=== PATIENT | male | born 1945 | race Caucasian/White ===

== ENCOUNTER 2018-09-27 17:06 | Inpatient (IN) | payer MEDICARE, OTHER ==
[2018-09-27 17:54] LABS: ADD MAN DIFF? NO
[2018-09-27 18:00] LABS: BASOPHILS % 0.5 % (0.0-2.0); EOSINOPHILS # 0.1 10^3/ul (0.0-0.5); EOSINOPHILS % 1.2 % (0.0-7.0); HEMATOCRIT 42.6 % (42.0-52.0); HEMOGLOBIN 14.1 g/dl (14.0-18.0); LYMPHOCYTES # 1.5 10^3/ul (0.8-2.9); LYMPHOCYTES % 17.4 % (15.0-51.0); MEAN CORPUSCULAR HEMOGLOBIN 28.7 pg (29.0-33.0); MEAN CORPUSCULAR HGB CONC 33.1 g/dl (32.0-37.0); MEAN CORPUSCULAR VOLUME 86.8 fl (82.0-101.0); MEAN PLATELET VOLUME 9.6 fl (7.4-10.4); MONOCYTE # 0.8 10^3/ul (0.3-0.9); NEUTROPHILS % 71.5 % (39.0-77.0); PLATELET COUNT 217 10^3/UL (140-415); RED BLOOD COUNT 4.91 10^6/ul (4.70-6.10)
[2018-09-27 18:00] LABS: WHITE BLOOD COUNT 8.4 10^3/ul (4.8-10.8)
[2018-09-27] MEDS: ACETAMINOPHEN 325 MG TAB PO (18:05)
[2018-09-27] MEDS: CEFEPIME 2GM/50 ML (PMX) 50 ML IVPB (18:05)
[2018-09-27] MEDS: SODIUM CHLORIDE 0.9% 1L BAG IV* (18:05)
[2018-09-27] MEDS: ALBUTEROL 0.5% (NEB) 2.5 MG/0.5 ML AMP INH (18:11)
[2018-09-27 18:20] LABS: INR 0.92; PROTIME 12.5 Sec (11.9-14.9)
[2018-09-27 18:21] LABS: PARTIAL THROMBOPLASTIN TIME 28.3 Sec (23.0-35.0)
[2018-09-27 18:22] LABS: ALANINE AMINOTRANSFERASE 37 IU/L (13-69); ALBUMIN 3.5 g/dl (3.3-4.9); ALBUMIN/GLOBULIN RATIO 1.02; ALKALINE PHOSPHATASE 63 IU/L (42-121); ANION GAP 6 (5-13); ASPARTATE AMINO TRANSFERASE 46 IU/L (15-46); BILIRUBIN,INDIRECT 0.4 mg/dl (0-1.1); BILIRUBIN,TOTAL 0.4 mg/dl (0.2-1.3); BLOOD UREA NITROGEN 15 mg/dl (7-20); CALCIUM 9.4 mg/dl (8.4-10.2); CARBON DIOXIDE 28 mmol/L (21-31); CHLORIDE 106 mmol/L (97-110); CREATININE 1.06 mg/dl (0.61-1.24); GLUCOSE 121 mg/dl (70-220); SODIUM 140 mmol/L (135-144); TOTAL PROTEIN 6.9 g/dl (6.1-8.1)
[2018-09-27 18:34] LABS: TROPONIN-I 0.066 ng/ml (0.000-0.120)
[2018-09-27] MEDS: VANCOMYCIN 1 GM (PMX) 250 ML IVPB (18:44)
[2018-09-27 19:17] LABS: B-TYPE NATRIURETIC PEPTIDE 1120 PG/ML (0-125)
[2018-09-27] MEDS ORDERED: ALBUTEROL/IPRATROPIUM (NEB) 3 ML AMP HHN (20:00)
[2018-09-27] MEDS ORDERED: ACETAMINOPHEN 325 MG TAB PO ×2 (20:00→22:30)
[2018-09-27] MEDS: METHYLPREDNISOLONE 125 MG INJ IV (20:44)
[2018-09-27] MEDS: ONDANSETRON 4 MG INJ IV (20:44)
[2018-09-27] MEDS: LOSARTAN 50 MG TAB PO (21:41)
[2018-09-27] MEDS: ATORVASTATIN 20 MG TAB PO (21:41)
[2018-09-27] MEDS: MONTELUKAST 10 MG TAB PO (21:41)
[2018-09-27] MEDS: ROPINIROLE 0.25 MG TAB PO (21:41)
[2018-09-27] MEDS: HEPARIN 5,000 UNIT/1 ML VIAL SC (21:49)
[2018-09-27] MEDS ORDERED: ONDANSETRON 4 MG INJ IV (22:30)
[2018-09-28] MEDS ORDERED: ONDANSETRON 4 MG INJ IV (02:00)
[2018-09-28 06:26] LABS: ADD MAN DIFF? NO
[2018-09-28 06:40] LABS: BASOPHILS % 0.2 % (0.0-2.0); HEMATOCRIT 39.8 % (42.0-52.0); HEMOGLOBIN 13.1 g/dl (14.0-18.0); LYMPHOCYTES # 0.7 10^3/ul (0.8-2.9); MEAN CORPUSCULAR HGB CONC 32.9 g/dl (32.0-37.0); MEAN CORPUSCULAR VOLUME 88.1 fl (82.0-101.0); MEAN PLATELET VOLUME 10.2 fl (7.4-10.4); MONOCYTE # 0.1 10^3/ul (0.3-0.9); MONOCYTES % 1.2 % (0.0-11.0); NEUTROPHIL # 4.9 10^3/ul (1.6-7.5); NEUTROPHILS % 85.2 % (39.0-77.0); PLATELET COUNT 209 10^3/UL (140-415); RED BLOOD COUNT 4.52 10^6/ul (4.70-6.10); RED CELL DISTRIBUTION WIDTH 13.3 % (11.5-14.5)
[2018-09-28 06:40] LABS: WHITE BLOOD COUNT 5.7 10^3/ul (4.8-10.8)
[2018-09-28 06:58] LABS: ALANINE AMINOTRANSFERASE 34 IU/L (13-69); ALBUMIN 3.1 g/dl (3.3-4.9); ALKALINE PHOSPHATASE 46 IU/L (42-121); ANION GAP 7 (5-13); ASPARTATE AMINO TRANSFERASE 36 IU/L (15-46); BILIRUBIN,INDIRECT 0.3 mg/dl (0-1.1); BILIRUBIN,TOTAL 0.3 mg/dl (0.2-1.3); BLOOD UREA NITROGEN 19 mg/dl (7-20); CALCIUM 8.6 mg/dl (8.4-10.2); CARBON DIOXIDE 28 mmol/L (21-31); CHLORIDE 107 mmol/L (97-110); CHOL/HDL RATIO 8.3 RATIO; CHOLESTEROL 208 mg/dl (100-200); CREATININE 1.12 mg/dl (0.61-1.24); GLUCOSE 208 mg/dl (70-220); HDL CHOLESTEROL 25 mg/dl (31-75); LDL CHOLESTEROL,CALCULATED 118 mg/dl; MAGNESIUM 1.6 mg/dl (1.7-2.5); POTASSIUM 4.4 mmol/L (3.5-5.1); SODIUM 142 mmol/L (135-144); TOTAL PROTEIN 5.9 g/dl (6.1-8.1); TRIGLYCERIDES 324 mg/dl (0-149)
[2018-09-28] MEDS: CEFTRIAXONE 1 GM/50 ML (PMX) 50 ML IVPB ×2 (08:34→21:35)
[2018-09-28] MEDS: AZITHROMYCIN 500MG/NS (PMX) 250 ML IVPB (08:34)
[2018-09-28] MEDS: ASPIRIN (EC) 81 MG TAB PO (08:35)
[2018-09-28] MEDS: PANTOPRAZOLE (EC) 40 MG TAB PO (08:35)
[2018-09-28] MEDS: CLOPIDOGREL 75 MG TAB PO (08:35)
[2018-09-28] MEDS: predniSONE 20 MG TAB PO (08:35)
[2018-09-28] MEDS: HEPARIN 5,000 UNIT/1 ML VIAL SC ×2 (08:43→22:16)
[2018-09-28] MEDS: LOSARTAN 50 MG TAB PO (08:58)
[2018-09-28] MEDS ORDERED: CEPASTAT LOZENGE MT (12:00)
[2018-09-28 12:54] LABS: HEMOGLOBIN A1C 5.9 % (0-5.9)
[2018-09-28] MEDS: METHYLPREDNISOLONE 125 MG INJ IV ×3 (13:42→21:33)
[2018-09-28] MEDS: MAGNESIUM SULFATE 1 GM/D5W 100 ML IVPB (13:42)
[2018-09-28] MEDS: ALBUTEROL/IPRATROPIUM (NEB) 3 ML AMP HHN ×3 (13:55→21:09)
[2018-09-28] MEDS: MONTELUKAST 10 MG TAB PO ×2 (21:00→21:34)
[2018-09-28] MEDS: ROPINIROLE 0.25 MG TAB PO (21:34)
[2018-09-28] MEDS: ATORVASTATIN 20 MG TAB PO (21:34)
[2018-09-28] MEDS: APIXABAN 5 MG TABLET PO (21:35)
[2018-09-29] MEDS: ALBUTEROL/IPRATROPIUM (NEB) 3 ML AMP HHN ×6 (01:04→20:39)
[2018-09-29] MEDS: METHYLPREDNISOLONE 125 MG INJ IV ×3 (06:28→21:09)
[2018-09-29 06:36] LABS: WHITE BLOOD COUNT 15.3 10^3/ul (4.8-10.8)
[2018-09-29 06:36] LABS: ADD MAN DIFF? NO; BASOPHILS % 0.1 % (0.0-2.0); HEMATOCRIT 38.2 % (42.0-52.0); HEMOGLOBIN 12.5 g/dl (14.0-18.0); LYMPHOCYTES # 0.8 10^3/ul (0.8-2.9); LYMPHOCYTES % 5.2 % (15.0-51.0); MEAN CORPUSCULAR HEMOGLOBIN 28.9 pg (29.0-33.0); MEAN CORPUSCULAR HGB CONC 32.7 g/dl (32.0-37.0); MEAN CORPUSCULAR VOLUME 88.2 fl (82.0-101.0); MEAN PLATELET VOLUME 10.2 fl (7.4-10.4); MONOCYTE # 0.4 10^3/ul (0.3-0.9); MONOCYTES % 2.9 % (0.0-11.0); NEUTROPHIL # 13.9 10^3/ul (1.6-7.5); NEUTROPHILS % 90.9 % (39.0-77.0); PLATELET COUNT 235 10^3/UL (140-415); RED BLOOD COUNT 4.33 10^6/ul (4.70-6.10); RED CELL DISTRIBUTION WIDTH 13.2 % (11.5-14.5)
[2018-09-29 07:06] LABS: ALANINE AMINOTRANSFERASE 27 IU/L (13-69); ALBUMIN 3.3 g/dl (3.3-4.9); ALBUMIN/GLOBULIN RATIO 1.22; ALKALINE PHOSPHATASE 50 IU/L (42-121); ANION GAP 9 (5-13); ASPARTATE AMINO TRANSFERASE 27 IU/L (15-46); BILIRUBIN,INDIRECT 0.1 mg/dl (0-1.1); BILIRUBIN,TOTAL 0.1 mg/dl (0.2-1.3); BLOOD UREA NITROGEN 25 mg/dl (7-20); CALCIUM 8.5 mg/dl (8.4-10.2); CARBON DIOXIDE 25 mmol/L (21-31); CHLORIDE 107 mmol/L (97-110); CHOL/HDL RATIO 8.3 RATIO; CHOLESTEROL 200 mg/dl (100-200); CREATININE 1.35 mg/dl (0.61-1.24); GLUCOSE 278 mg/dl (70-220); HDL CHOLESTEROL 24 mg/dl (31-75); LDL CHOLESTEROL,CALCULATED 96 mg/dl; POTASSIUM 4.2 mmol/L (3.5-5.1); SODIUM 141 mmol/L (135-144); TRIGLYCERIDES 402 mg/dl (0-149)
[2018-09-29 07:14] LABS: B-TYPE NATRIURETIC PEPTIDE 259 PG/ML (0-125)
[2018-09-29 07:39] LABS: MAGNESIUM 1.9 mg/dl (1.7-2.5)
[2018-09-29 07:39] LABS: PHOSPHORUS 2.7 mg/dl (2.5-4.9)
[2018-09-29] MEDS: CLOPIDOGREL 75 MG TAB PO (09:49)
[2018-09-29] MEDS: APIXABAN 5 MG TABLET PO ×2 (09:50→20:58)
[2018-09-29] MEDS: LOSARTAN 50 MG TAB PO (09:50)
[2018-09-29] MEDS: PANTOPRAZOLE (EC) 40 MG TAB PO (09:50)
[2018-09-29] MEDS: predniSONE 20 MG TAB PO (09:50)
[2018-09-29] MEDS: CEFTRIAXONE 1 GM/50 ML (PMX) 50 ML IVPB ×2 (09:52→20:59)
[2018-09-29] MEDS: HEPARIN 5,000 UNIT/1 ML VIAL SC (10:17)
[2018-09-29] MEDS: AZITHROMYCIN 500MG/NS (PMX) 250 ML IVPB (10:46)
[2018-09-29] MEDS: MONTELUKAST 10 MG TAB PO ×2 (20:58→21:00)
[2018-09-29] MEDS: ROPINIROLE 0.25 MG TAB PO (20:58)
[2018-09-29] MEDS: ATORVASTATIN 20 MG TAB PO (20:58)
[2018-09-30] MEDS: ALBUTEROL/IPRATROPIUM (NEB) 3 ML AMP HHN ×6 (00:43→19:35)
[2018-09-30] MEDS: METHYLPREDNISOLONE 125 MG INJ IV (05:56)
[2018-09-30 06:15] LABS: ADD MAN DIFF? NO
[2018-09-30 06:19] LABS: BASOPHILS % 0.2 % (0.0-2.0); HEMATOCRIT 38.6 % (42.0-52.0); HEMOGLOBIN 12.2 g/dl (14.0-18.0); LYMPHOCYTES # 1.2 10^3/ul (0.8-2.9); LYMPHOCYTES % 5.9 % (15.0-51.0); MEAN CORPUSCULAR HEMOGLOBIN 28.6 pg (29.0-33.0); MEAN CORPUSCULAR HGB CONC 31.6 g/dl (32.0-37.0); MEAN CORPUSCULAR VOLUME 90.4 fl (82.0-101.0); MEAN PLATELET VOLUME 10.1 fl (7.4-10.4); MONOCYTE # 0.5 10^3/ul (0.3-0.9); MONOCYTES % 2.6 % (0.0-11.0); NEUTROPHIL # 18.5 10^3/ul (1.6-7.5); NEUTROPHILS % 89.5 % (39.0-77.0); PLATELET COUNT 267 10^3/UL (140-415); RED BLOOD COUNT 4.27 10^6/ul (4.70-6.10); RED CELL DISTRIBUTION WIDTH 13.2 % (11.5-14.5)
[2018-09-30 06:19] LABS: WHITE BLOOD COUNT 20.7 10^3/ul (4.8-10.8)
[2018-09-30 06:37] LABS: ANION GAP 9 (5-13); BLOOD UREA NITROGEN 28 mg/dl (7-20); CALCIUM 8.3 mg/dl (8.4-10.2); CARBON DIOXIDE 23 mmol/L (21-31); CHLORIDE 110 mmol/L (97-110); CREATININE 1.27 mg/dl (0.61-1.24); GLUCOSE 214 mg/dl (70-220); POTASSIUM 4.5 mmol/L (3.5-5.1); SODIUM 142 mmol/L (135-144)
[2018-09-30] MEDS: CEFTRIAXONE 1 GM/50 ML (PMX) 50 ML IVPB ×2 (09:27→20:43)
[2018-09-30] MEDS: HYDROCHLOROTHIAZIDE 25 MG TAB PO (09:29)
[2018-09-30] MEDS: LOSARTAN 50 MG TAB PO (09:30)
[2018-09-30] MEDS: CLOPIDOGREL 75 MG TAB PO (09:30)
[2018-09-30] MEDS: PANTOPRAZOLE (EC) 40 MG TAB PO (09:30)
[2018-09-30] MEDS: APIXABAN 5 MG TABLET PO ×2 (09:30→20:44)
[2018-09-30] MEDS: AZITHROMYCIN 500MG/NS (PMX) 250 ML IVPB (10:29)
[2018-09-30] MEDS: FUROSEMIDE 40 MG INJ IV (12:35)
[2018-09-30] MEDS: METHYLPREDNISOLONE 40 MG INJ IV (20:43)
[2018-09-30] MEDS: ATORVASTATIN 20 MG TAB PO (20:43)
[2018-09-30] MEDS: MONTELUKAST 10 MG TAB PO (20:44)
[2018-09-30] MEDS: ROPINIROLE 0.25 MG TAB PO (20:44)
[2018-10-01] MEDS: ALBUTEROL/IPRATROPIUM (NEB) 3 ML AMP HHN ×4 (01:00→12:37)
[2018-10-01 06:28] LABS: ADD MAN DIFF? NO
[2018-10-01 06:37] LABS: WHITE BLOOD COUNT 18.8 10^3/ul (4.8-10.8)
[2018-10-01 06:37] LABS: BASOPHILS % 0.2 % (0.0-2.0); HEMATOCRIT 38.2 % (42.0-52.0); HEMOGLOBIN 12.4 g/dl (14.0-18.0); LYMPHOCYTES # 1.6 10^3/ul (0.8-2.9); LYMPHOCYTES % 8.3 % (15.0-51.0); MEAN CORPUSCULAR HEMOGLOBIN 28.7 pg (29.0-33.0); MEAN CORPUSCULAR HGB CONC 32.5 g/dl (32.0-37.0); MEAN CORPUSCULAR VOLUME 88.4 fl (82.0-101.0); MEAN PLATELET VOLUME 10.1 fl (7.4-10.4); MONOCYTE # 0.7 10^3/ul (0.3-0.9); MONOCYTES % 3.8 % (0.0-11.0); NEUTROPHIL # 16.2 10^3/ul (1.6-7.5); NEUTROPHILS % 86.3 % (39.0-77.0); PLATELET COUNT 293 10^3/UL (140-415); RED BLOOD COUNT 4.32 10^6/ul (4.70-6.10); RED CELL DISTRIBUTION WIDTH 13.2 % (11.5-14.5)
[2018-10-01 07:03] LABS: ANION GAP 9 (5-13); BLOOD UREA NITROGEN 35 mg/dl (7-20); CALCIUM 8.4 mg/dl (8.4-10.2); CARBON DIOXIDE 25 mmol/L (21-31); CHLORIDE 107 mmol/L (97-110); CREATININE 1.28 mg/dl (0.61-1.24); GLUCOSE 237 mg/dl (70-220); POTASSIUM 4.3 mmol/L (3.5-5.1); SODIUM 141 mmol/L (135-144)
[2018-10-01] MEDS: METHYLPREDNISOLONE 40 MG INJ IV (08:23)
[2018-10-01] MEDS: CEFTRIAXONE 1 GM/50 ML (PMX) 50 ML IVPB (08:25)
[2018-10-01] MEDS: HYDROCHLOROTHIAZIDE 25 MG TAB PO (08:26)
[2018-10-01] MEDS: PANTOPRAZOLE (EC) 40 MG TAB PO (08:26)
[2018-10-01] MEDS: CLOPIDOGREL 75 MG TAB PO (08:26)
[2018-10-01] MEDS: FUROSEMIDE 40 MG INJ IV (08:26)
[2018-10-01] MEDS: APIXABAN 5 MG TABLET PO (08:27)
[2018-10-01] MEDS: LOSARTAN 50 MG TAB PO (08:27)
[2018-10-01] MEDS: AZITHROMYCIN 500MG/NS (PMX) 250 ML IVPB (08:46)
== END 2018-10-01 13:58 | disposition home or self-care (01) | DRG 193 ==
LOC: E/R 17:06 → 6WM 22:30
DX: J18.9 Pneumonia, unspecified organism (principal); I50.33 Acute on chronic diastolic (congestive) heart failure; J44.1 Chronic obstructive pulmonary disease with (acute) exacerbation; J44.0 Chronic obstructive pulmonary disease with (acute) lower respiratory infection; J43.9 Emphysema, unspecified; I11.0 Hypertensive heart disease with heart failure; I25.10 Atherosclerotic heart disease of native coronary artery without angina pectoris; E78.5 Hyperlipidemia, unspecified; Z86.718 Personal history of other venous thrombosis and embolism; Z79.01 Long term (current) use of anticoagulants; Z86.73 Personal history of transient ischemic attack (TIA), and cerebral infarction without residual deficits; Z87.891 Personal history of nicotine dependence; Z79.82 Long term (current) use of aspirin; Z95.5 Presence of coronary angioplasty implant and graft
CPT/HCPCS: 36415; 71045; 80048; 80053; 80061; 83036; 83605; 83735; 83880; 84100; 84439; 84443; 84484; 85025; 85610; 85730; 87040-91; 87070; 87086; 87400; 93005; 93306; 94640; 94644; 94664; 96365; 96366; 96367; 96372; 96375; 97161; 99285-25